=== PATIENT | male | born 1955 | race Caucasian/White ===

== ENCOUNTER 2017-04-29 11:47 | Emergency (ER) | payer OTHER, MEDICAID ==
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
[2017-04-29 13:08] LABS: ANION GAP 12 mEq/L (8-16); CALCIUM 9.5 mg/dL (8.5-10.4); CARBON DIOXIDE 23 mEq/l (22-31); CHLORIDE 105 mEq/L (97-110); CREATININE 1.3 mg/dL (0.7-1.3); GLOMERULAR FILTRATION RATE 56; GLUCOSE 104 mg/dL (70-100); POTASSIUM 4.4 mEq/L (3.5-5.2); SODIUM 140 mEq/L (134-144)
[2017-04-29 13:57] VITALS: BP 119/69; PULSE 87; RESP 16; O2SAT 91
--- NOTE | 2017-04-29 14:52 | CPEKG ---
Heart Rate: 87 RR Interval: 690 P-R Interval: 184 QRSD Interval: 96 QT Interval: 372 QTC Interval: 448 P Henderson: 44 QRS Henderson: 62 T Wave Henderson: 10 EKG Severity - NORMAL ECG - EKG Impression: SINUS RHYTHM Electronically Signed By: Brendan Osei 29-Apr-2017 14:53:00
[2017-04-29 14:57] VITALS: TEMP 98.2
== END 2017-04-29 14:57 | disposition home or self-care (01) ==
DX: G40.909 Epilepsy, unspecified, not intractable, without status epilepticus (principal); F17.200 Nicotine dependence, unspecified, uncomplicated; E11.9 Type 2 diabetes mellitus without complications; Z79.4 Long term (current) use of insulin

== ENCOUNTER 2018-05-26 18:45 | Emergency (ER) | payer OTHER ==
--- NOTE | 2018-05-26 19:01 | EDPHY ---
H & P Stated Complaint: possible sz/5 second of unresponsiveness. Time Seen by Provider: 05/26/18 18:59 HPI/ROS: CHIEF COMPLAINT: Seizure HISTORY OF PRESENT ILLNESS: The patient presents to the ED after a likely partial seizure. He was at a grocery store when he developed an episode of decreased responsiveness, aphasia and some right arm weakness. The patient reports this is fairly typical of his usual seizure pattern. Bystanders contacted paramedics. The patient did not have a tonic-clonic seizure. He was brought in by paramedics for further evaluation. He reports the symptoms he experienced earlier today have resolved. He denies any acute headache, numbness or weakness. The patient reports he has been compliant with his Dilantin. The patient reports he typically experiences a seizure or partial seizure about 1 time a month. The patient is under the care of Dr. Morales. REVIEW OF SYSTEMS: A comprehensive 10 point review of systems is otherwise negative aside from elements mentioned in the history of present illness. Source: Patient, Family - Personal History Current Tetanus/Diphtheria Vaccine: Yes Current Tetanus Diphtheria and Acellular Pertussis (TDAP): Yes - Medical/Surgical History Hx Asthma: No Hx Chronic Respiratory Disease: No Hx Diabetes: No Hx Cardiac Disease: No Hx Renal Disease: No Hx Cirrhosis: No Hx Alcoholism: No Hx HIV/AIDS: No Hx Splenectomy or Spleen Trauma: No Other PMH: seizures, retinal neuroblastoma at 18 months of age. brain tumor removed 1997,hypothyroid, Diabetic type II - Social History Smoking Status: Former smoker - Physical Exam Exam: General Appearance: Alert, no distress Head: Normocephalic atraumatic Eyes: Patch over right eye secondary to prior enucleation ENT, Mouth: Mucous membranes moist Respiratory: There are no retractions, lungs are clear to auscultation Cardiovascular: Regular rate and rhythm Gastrointestinal: Abdomen is soft and nontender, no masses, bowel sounds normal Neurological: 5/5 strength noted all 4 extremities, normal sensory exam, grossly normal cranial nerves Skin: Warm and dry, no rashes Musculoskeletal: Neck is supple nontender Extremities: symmetrical, full range of motion Psychiatric: Patient is oriented X 3, there is no agitation Constitutional: Initial Vital Signs Temperature (C) 36.7 C 05/26/18 18:50 Heart Rate 81 05/26/18 18:50 Respiratory Rate 8 L 05/26/18 18:50 Blood Pressure 133/78 H 05/26/18 18:50 O2 Sat (%) 93 05/26/18 18:50 O2 Delivery Mode Room Air,Nasal Cannula Allergies/Adverse Reactions: penicillin G [Penicillin G] Allergy (Verified 07/20/11 20:38) Home Medications: Medication Instructions Recorded Dilantin 01/06/15 Levothyroxine 01/06/15 HumuLIN 70/30 05/26/18 Medical Decision Making ED Course/Re-evaluation: The patient presents to the ED after a possible mild seizure earlier today. The patient has no status epilepticus. He is neurologically intact. His Dilantin level is therapeutic. Patient was observed in the emergency department for 2 hr without recurrent seizure. He is asymptomatic at this point time. The patient will be discharged home at 7:45 p.m. With instructions to follow up with Dr. Morales as scheduled. Differential Diagnosis: Differential diagnosis considered includes seizure, status epilepticus, dehydration, metabolic abnormality - Data Points Laboratory Results: Laboratory Results 05/26/18 18:40 05/26/18 18:40 05/26/18 05/26/18 18:40 18:40 WBC 6.54 10^3/uL 10^3/uL (3.80-9.50) RBC 4.74 10^6/uL 10^6/uL (4.40-6.38) Hgb 15.1 g/dL g/dL (13.7-17.5) Hct 44.7 % % (40.0-51.0) MCV 94.3 fL fL (81.5-99.8) MCH 31.9 pg pg (27.9-34.1) MCHC 33.8 g/dL g/dL (32.4-36.7) RDW 13.2 % % (11.5-15.2) Plt Count 271 10^3/uL 10^3/uL (150-400) MPV 8.4 fL L fL (8.7-11.7) Neut % (Auto) 50.1 % % (39.3-74.2) Lymph % (Auto) 39.1 % % (15.0-45.0) [place] % (Auto) 7.6 % % (4.5-13.0) Eos % (Auto) 2.6 % % (0.6-7.6) Baso % (Auto) 0.3 % % (0.3-1.7) Nucleat RBC Rel Count 0.0 % % (0.0-0.2) Absolute Neuts (auto) 3.27 10^3/uL 10^3/uL (1.70-6.50) Absolute Lymphs (auto) 2.56 10^3/uL 10^3/uL (1.00-3.00) Absolute Monos (auto) 0.50 10^3/uL 10^3/uL (0.30-0.80) Absolute Eos (auto) 0.17 10^3/uL 10^3/uL (0.03-0.40) Absolute Basos (auto) 0.02 10^3/uL 10^3/uL (0.02-0.10) Absolute Nucleated RBC 0.00 10^3/uL 10^3/uL (0-0.01) Immature Gran % 0.3 % % (0.0-1.1) Immature Gran # 0.02 10^3/uL 10^3/uL (0.00-0.10) Sodium 138 mEq/L mEq/L (135-145) Potassium 4.3 mEq/L mEq/L (3.3-5.0) Chloride 102 mEq/L mEq/L (97-110) Carbon Dioxide 21 mEq/l L mEq/l (22-31) Anion Gap 15 mEq/L mEq/L (8-16) BUN 21 mg/dL mg/dL (7-23) Creatinine 1.1 mg/dL mg/dL (0.7-1.3) Estimated GFR > 60 Glucose 232 mg/dL H mg/dL (70-100) Calcium 9.7 mg/dL mg/dL (8.5-10.4) Phenytoin 14.8 mcg/mL mcg/mL (10.0-20.0) Departure - Departure Disposition: Home, Routine, Self-Care Clinical Impression: Seizure disorder Condition: Good Instructions: Epilepsy (ED) Additional Instructions: 1. Please return to the ED for increasing seizure frequency, headache, new neurologic symptoms or other concerns. 2. Follow up as scheduled with Dr. Morales 3. No driving or participating in dangerous activities that would put you were someone else at risk in the event of a recurrent seizure until cleared to do so by your primary care provider or neurologist. Referrals: Iván Morales MD [Primary Care Provider] - As per Instructions
[2018-05-26 19:08] VITALS: BP 133/78
[2018-05-26 19:15] LABS: PLATELET COUNT 271 10^3/uL (150-400)
== END 2018-05-26 19:55 | disposition home or self-care (01) ==
LOC: EDUNIT#
DX: G40.909 Epilepsy, unspecified, not intractable, without status epilepticus (principal); E11.9 Type 2 diabetes mellitus without complications; Z87.891 Personal history of nicotine dependence

== ENCOUNTER → 2018-10-16 | Outpatient (CLI) | payer OTHER, MEDICAID ==
[~2018-10-16] MED LIST: GADOBUTROL 10 ML VIAL IVP ONE
== END ==
LOC: FIMAGING 08:05
PROVIDERS: ATTEND Internal Medicine
DX: Z98.890 Other specified postprocedural states (principal); G93.89 Other specified disorders of brain
CPT/HCPCS: 70553; A9585; 82565-PO

== ENCOUNTER → 2018-11-15 | Outpatient (CLI) | payer OTHER, MEDICAID ==
--- NOTE | 2018-11-15 21:53 | CPEEG ---
[f rep st] ELECTROENCEPHALOGRAM 4-HOUR VIDEO EEG DATE OF STUDY: 11/15/2018 DATE OF INTERPRETATION: 11/15/18 INTERPRETATION: This 4-hour video EEG recording is abnormal due to the following reasons: 1. There were potentially epileptogenic abnormalities over the left frontocentral head regions, maximal left lateral frontal. These findings would be consistent with a focal seizure disorder. 2. There was a moderate degree of focal slowing and asymmetry over the left frontocentral head regions. This finding is consistent with the patient's known history of brain tumor and neurosurgical resection in these regions. The patient did not have any clinical events or electrographic seizures during the video EEG monitoring session. REPORT: This 4-hour video EEG contains 10 Hz alpha activity over the posterior head regions, maximal right. There was persistent moderate focal slowing over the left frontocentral head regions consisting of mainly theta and some delta frequency activity. In addition, there was a moderate degree of asymmetry over the left frontocentral head regions with increased amplitudes (breach rhythm). The primary feature of this recording was the presence of spikes and sharp waves over the left frontocentral head region, maximal at electrode F3. These discharges disrupted the ongoing breach rhythm background activity and at times had significantly higher amplitudes than the ongoing background activity in the breach rhythm. There were no electrographic seizures or clinical events recorded during the video EEG monitoring session. /[id number]/MODL MTDD
== END ==
LOC: FCPNEURO 08:03
PROVIDERS: ATTEND Psychiatry & Neurology Neurology
DX: R94.01 Abnormal electroencephalogram [EEG] (principal); C71.9 Malignant neoplasm of brain, unspecified; G40.109 Localization-related (focal) (partial) symptomatic epilepsy and epileptic syndromes with simple partial seizures, not intractable, without status epilepticus

== ENCOUNTER 2019-02-17 18:05 | Emergency (ER) | payer OTHER, MEDICAID | END 2019-02-17 18:45 | disposition home or self-care (01) ==